=== PATIENT | male | born 2000 | race Caucasian/White ===

== ENCOUNTER 2022-10-14 21:03 | Emergency (ER) | payer BC, SELFPAY ==
[2022-10-14 22:51] VITALS: BP 143/76; PULSE 97; RESP 18; TEMP 37.2; O2SAT 100; BMI 26.2
[2022-10-14 23:39] LABS: Coronavirus 19, PCR Not Detected (NotDetected); Influenza A, PCR Not Detected (NotDetected); Influenza B, PCR Not Detected (NotDetected)
--- NOTE | 2022-10-15 00:08 | PC.NURSE ---
called lab and they advised 14 minutes remaining on respiratory swab
--- NOTE | 2022-10-15 00:28 | HMH.EDURI ---
Discharge Plan Disposition Patient Disposition: Home, Self-Care Prescriptions Prescriptions: New azithromycin [azithromycin] 250 mg tablet 250 mg PO DIRECTED Qty: 6 0RF Rx Instructions: Take two (2) tablets on day #1, then one (1) tablet day #2 thru #5 benzonatate 100 mg Capsule 100 mg PO Q8H Qty: 20 0RF prednisone [prednisone] 20 mg tablet 20 mg PO BID Qty: 10 0RF oseltamivir [Tamiflu] 75 mg capsule 75 mg PO BID 5 Days Qty: 10 0RF Referrals Follow up/Referrals: Provider,Referral, MD [Primary Care Provider] - See instructions Clinical Impressions Clinical Impression: Bronchitis Instructions Patient Instructions: DI for Acute Bronchitis Discharge ED Provider: Enmanuel Genao URI/Sore Throat HPI General Chief Complaint: Upper Respiratory Infection Stated Complaint: SOA,cough Time Seen by Provider: 10/15/22 00:29 Mode of Arrival: Ambulatory Source of Information: Patient and Medical Record Limitations: No Limitations Description of Symptoms (Recalled from ER Triage Doc. by RN): Patient c/o headache, bodyaches and cough for the prior 2 days. History of Present Illness HPI Narrative: achey and cough with exposure to flu over the last 2 days Complaint: cough and nasal congestion Onset (ago): day(s) Duration: intermittent Severity: moderate Relieving factors: OTC cold medicine Able to tolerate fluids by mouth: Yes Context: sick contacts Associated symptoms: myalgias Treatments prior to arrival: acetaminophen Related Data Previous Rx's Medication Instructions Recorded azithromycin 250 mg tablet 250 mg PO DIRECTED #6 tabs 10/15/22 benzonatate 100 mg capsule 100 mg PO Q8H #20 caps 10/15/22 oseltamivir 75 mg capsule (Tamiflu) 75 mg PO BID 5 days #10 caps 10/15/22 prednisone 20 mg tablet 20 mg PO BID #10 tabs 10/15/22 Allergies Allergy/AdvReac Type Severity Reaction Status Date / Time No Known Allergies Allergy Verified 10/14/22 22:54 PFSH PFSH Social History Smoking Status: Current every day smoker alcohol intake: never current occupational status: employed Travel in the last 8 weeks: None ROS Obtained: Yes All systems reviewed & no additional complaints except as documented Physical Exam General General appearance: alert Head Head exam: normocephalic Eye Eye exam: Present PERRL and EOMI ENT ENT exam: Present normal oropharynx and mucous membranes moist Neck Neck exam: Present trachea midline Respiratory Respiratory exam: Present normal lung sounds bilaterally; Absent respiratory distress Cardiovascular Cardiovascular exam: Present regular rate and normal heart sounds; Absent systolic murmur Abdominal Exam Abdominal exam: Present soft Extremities Exam Extremities exam: Present full ROM Neurological Exam Neurological exam: Present alert, oriented X3 and CN II-XII intact Skin Skin exam: Present intact Medical Decision Making Medical Records Medical records reviewed: Yes I reviewed the patient's medical records. Jamaal Inquiry Pt receiving controlled substance: No Vital Signs: 10/14/22 22:51 Temperature 98.9 F Temperature Source Oral Pulse Rate [Apical] 97 H Respiratory Rate 18 Blood Pressure [Right Arm] 143/76 H Blood Pressure Mean [Right Arm] 98 Blood Pressure Source [Right Arm] Automatic Cuff Blood Pressure Position [Right Arm] Sitting 02 Sat by Pulse Oximetry 100 Oxygen Delivery Method Room Air Lab Data Lab results reviewed: Yes I reviewed the patient's lab results. Lab Results 10/14/22 22:40: SARS-CoV-2 (PCR) Not detected, Influenza A Untype (PCR) Not detected, Influenza Type B (PCR) Not detected Orders (Tests/Meds): ORDERS Category Date Time Status Rapid PCR Covid and Flu A/B Stat Lab 10/14/22 22:40 Completed Medical Decision Narrative: has acute resp sx consistent with flu and awaiting full resp panel Critical Care Time Critical Care Time Critical Care Time: No Attestation: On
[2022-10-15 00:47] VITALS: BP 140/75; PULSE 88; RESP 18; TEMP 36.6; O2SAT 99
[2022-10-15 00:59] LABS: Adenovirus,PCR Not Detected (NotDetected); Bordetella Pertussis Not Detected (NotDetected); Chlamydophila Pneumoniae, PCR Not Detected (NotDetected); Coronavirus 19, PCR Not Detected (NotDetected); Coronavirus 229E Not Detected (NotDetected); Coronavirus NL63 Not Detected (NotDetected); Coronavirus OC43 Not Detected (NotDetected); Coronovirus HKU1,PCR Not Detected (NotDetected); Human Metapneumovirus Not Detected (NotDetected); Influenza A, PCR Not Detected (NotDetected); Influenza AH1, 2009 Not Detected (NotDetected); Influenza AH1, PCR Not Detected (NotDetected); Influenza AH3,PCR Not Detected (NotDetected); Influenza B, PCR Not Detected (NotDetected); Mycoplasma Pneumoniae, PCR Not Detected (NotDetected); Parainfluenza 1, PCR Not Detected (NotDetected); Parainfluenza 2, PCR Not Detected (NotDetected); Parainfluenza 3, PCR Not Detected (NotDetected); Parainfluenza 4, PCR Not Detected (NotDetected); Respiratory Syncytial Virus Not Detected (NotDetected); Rhinovirus/Enterovirus Not Detected (NotDetected)
== END 2022-10-15 00:49 | disposition home or self-care (01) ==
PROVIDERS: Emergency Provider Emergency Medicine
DX: J06.9 Acute upper respiratory infection, unspecified (principal); M79.10 Myalgia, unspecified site; R09.81 Nasal congestion; R51.9 Headache, unspecified; Z20.822 Contact with and (suspected) exposure to COVID-19; Z79.52 Long term (current) use of systemic steroids
CPT/HCPCS: 87581; 87632; 87798; 99283; C9803; U0003; U0005

== ENCOUNTER 2023-06-30 11:37 | Emergency (ER) | payer BC, SELFPAY ==
--- NOTE | 2023-06-30 11:47 | ECG_ITS ---
APPROVED REPORT Exam: Resting ECG HR:74 bpm ECG Measurements Heart Rate 74 AXES WI 133 P 41 QRSd 97 QRS 76 QT 360 T 69 QTc 387 Conclusion SINUS RHYTHM NORMAL ECG UNCONFIRMED REPORT Electronically signed by : Neto Hunter MD 07/01/2023 17:34:21
[2023-06-30 11:52] VITALS: BP 148/82; PULSE 88; RESP 19; TEMP 36.7; O2SAT 100; BMI 25.1
[2023-06-30 12:00] VITALS: BP 143/69; PULSE 73; RESP 13; O2SAT 97
[2023-06-30 12:03] LABS: Basophils % 0.3 % (0.1-2.0); Eosinophils # 0.2 K/mm3 (0.0-0.4); Eosinophils % 2.1 % (0.1-12.0); Hematocrit 43.7 % (42.0-52.0); Hemoglobin 14.8 g/dL (14.1-18.0); Lymphocytes # 1.8 K/mm3 (0.7-4.5); Lymphocytes % 24.5 % (10-50); Mean Corpuscular HGB Conc 33.8 g/dL (31.8-35.4); Mean Corpuscular Hemoglobin 28.2 pg (27.0-31.2); Mean Corpuscular Volume 83.5 fl (80-94); Mean Platelet Volume 8.4 fl (7.4-10.4); Monocytes # 0.5 K/mm3 (0.1-1.0); Monocytes % 6.4 % (1.7-9.3); Neutrophils # 4.8 K/mm3 (1.8-7.8); Neutrophils % 66.6 % (37.0-80.0); Platelet Count 204 K/mm3 (142-424); Red Blood Count 5.24 M/mm3 (4.60-6.20); Red Cell Distribution Width 13.1 % (11.5-17.5); White Blood Count 7.1 K/mm3 (4.8-10.8)
--- NOTE | 2023-06-30 12:07 | PC.NURSE ---
Contacted Cardiology per Tyree who called stating that pt was to go straight to [facility] and office for further assistance. Per Cardiology pt was to fu on another day. Pt will be seen by cardiology in the ER. Dr. Raymundo loyd.
[2023-06-30 12:08] VITALS: PULSE 69
--- NOTE | 2023-06-30 12:14 | CA_ITS ---
APPROVED REPORT EXAM: Comprehensive 2D, Doppler, and color-flow Echocardiogram Boat Painter: Sonja Beard, RCS, RVS Ht: 6 ft 2 in Wt: 196lbs BSA: 2.15 BP: 141/76 mmHg Indications: CP, Abn EKG 2D Dimensions Aortic Root 2.94 cm LA Volume 49.60 mL Left Atrium 3.43 cm LA Volume Index 22.40 mL/m2 (M/F) 16-34 LVOT 1.91 cm (M/F) 1.5-2.5 M-Mode Dimensions RVDd 2.43 cm (0.9-2.6) LA Diam 3.05 cm (1.9-4.0) LVDd 4.74 cm (3.5-5.7) Ao Diam 3.05 cm (2.0-3.7) LVDs 3.34 cm (3.5-5.7) IVSd 0.91 cm (0.6-1.1) PWd 0.87 cm (0.6-1.1) EF (Teich) 56.50% EPSs 0.27 cm FS 29.50% EDV (Teich) 104.40 mL TAPSE 2.18 (<1.7) ESV (Teich) 45.40 mL LV Diastology E Decel Time 230.00 (160-240 msec) E/A Ratio 1.90 MED E' 10.40 (< 7 cm/sec) MED A' 9.40 cm/s E'/MED E' Ratio 9.05 (>14) LAT E' 17.80 (<10 cm/sec) LAT A' 12.10 cm/s E/LAT E' Ratio 5.29 (>14) Aortic Valve LVOT Max 88.00 (70-110 cm/s) LVOT VTI 19.55 cm AoV Peak Rigoberto. 131.00 (50-130 cm/s) AO Peak GR. 6.90 mmHg AO Mean GR. 3.40 (<5 mmHg) AO VTI 28.40 (18-25 cm) LIONEL (VTI) 1.97 (2.5-4.5 cm2) Mitral Valve MV A Velocity 50.00 (40-130 cm/s) E/A Ratio 1.90 MV Decel. Time 230.00 (160-240 ms) Pulmonary Valve PV Peak Velocity 105.00 (50-150 cm/s) Tricuspid Valve TR P. Velocity 199.00 cm/s RAP Estimate 10.00 mmHg RVSP 25.80 mmHg Left Ventricle The left ventricle is normal size. The left ventricular systolic function is normal. The left ventricular ejection fraction is within the normal range. There is normal left ventricular wall thickness. There is normal LV segmental wall motion. The left ventricular diastolic function is normal. LVEF is 55%. Right Ventricle The right ventricle is normal size. The right ventricular systolic function is normal. There is normal right ventricular wall thickness. Atria The left atrium size is normal. The right atrium size is normal. Aortic Valve The aortic valve opens well. There is no aortic valvular stenosis. Trace aortic regurgitation. Mitral Valve The mitral valve is normal in structure. No evidence of mitral valve stenosis. There is trace mitral valve regurgitation noted. Tricuspid Valve The tricupid valve leaflets are thin and pliable. Trace tricuspid regurgitation. RVSP is normal. Pulmonic Valve The pulmonary valve is normal in structure. Trace pulmonic regurgitation. Great Vessels The aortic root is normal in size. IVC is normal in size and collapses >50% with inspiration. Pericardium There is no pericardial effusion. Other Information Study Quality: Adequate Conclusion Normal biventricular systolic function. No significant valvular disease. No pericardial effusions. Electronically signed by : Brenda Fallon, 06/30/2023 13:59:16
[2023-06-30 12:19] LABS: Alanine Aminotransferase 29 U/L (12-78); Albumin Level 4.7 g/dl (3.5-5.0); Albumin/Globulin Ratio 1.4 (1.1-1.8); Alkaline Phosphatase 81 U/L (38-126); Anion Gap 12.8 mEq/L (5-15); Aspartate Amino Transferase 33 U/L (17-59); Bilirubin,Total 0.3 mg/dl (0.2-1.3); Blood Urea Nitrogen 22 mg/dl (9-20); Calcium 9.5 mg/dl (8.4-10.2); Carbon Dioxide 27 mmol/L (22.0-30.0); Chloride 105 mmol/L (98-107); Creatinine Clearance Estimated 129 mL/min (50-200); Estimated Glomerular Filt Rate 82 ml/min (>60); GFR (African American) 99 ML/MIN (>60); Globulin 3.4 g/dL (1.3-3.2); Glucose 98 mg/dl (74-100); Potassium 3.8 mmoL/L (3.5-5.1); Sodium 141 mmol/L (136-145); Total Protein,Serum 8.1 g/dl (6.3-8.2)
[2023-06-30 12:30] VITALS: BP 141/76; PULSE 62; O2SAT 96
[2023-06-30 12:30] LABS: Troponin I < 0.01 ng/ml (0.00-0.034)
[2023-06-30 12:45] LABS: D-Dimer 0.45 ug/mL (0.0-0.5)
[2023-06-30 12:58] LABS: Erythrocyte Sedimentation Rate 6 mm/hr (0-15)
[2023-06-30 12:59] LABS: C-Reactive Protein < 0.3 mg/L (0-4)
--- NOTE | 2023-06-30 13:22 | EXP.CARD.CON ---
History of Present Illness History of Present Illness Consult date: 06/30/23 Requesting physician: Whitley Fonseca Consult reason: chest pain Chief complaint: chest pain History of present illness: This is a 23-year-old white gentleman who presented to the emergency department complaints of chest pain. The patient states that his chest pain started around 9 AM this morning. He states that this is a sharp pain in the left side of his chest, in the rib area underneath his breast that radiated across his chest. He states that it was associated with shortness of breath. It did not seem to be any worse with deep inhalation. He states laying back made his chest pain better. He states that he felt the pain more when he was standing up. He states that the pain would come and go and was severe pain. The patient reports not ever having any pain like that before. He does report having episodes where he feels like his heart speeds up and then slows down and when his heart rate slows down he gets a little short of breath. He states that these episodes happen intermittently but he does not recall when this last episode happened. He denies any history of heart disease. His father has a history of hypertension and was recently in the hospital and underwent cardiac catheterization and was found to have mild coronary artery disease. His maternal grandfather also has coronary artery disease. He is a current tobacco user. [facility] Disclaimer: The information contained in this section may have been updated after the patient was seen, as this information can be updated by other users. Medical History (Updated 06/30/23 @ 13:34 by Whitley Fonseca DO) Acid reflux Acute dyspnea Chest pain Palpitations Social History (Updated 10/15/22 @ 00:36 by Enmanuel Genao MD) Smoking Status: Current every day smoker alcohol intake: never current occupational status: employed Travel in the last 8 weeks: None Review of Systems Review of Systems Review of systems:: pertinent systems reviewed and negative unless documented below Constitutional Constitutional: Reports system reviewed and no additional complaints, except as documented Eyes Eyes: Reports system reviewed and no additional complaints, except as documented ENT Ears, Nose, Mouth, and Throat: Reports system reviewed and no additional complaints, except as documented *Cardiovascular Cardiovascular: Reports system reviewed and no additional complaints, except as documented, Reports chest pain, Reports chest pain at rest, Reports chest pain with activity, Reports dyspnea, Reports dyspnea on exertion, Reports palpitations, Reports rapid heart rate and Reports slow heart rate *Respiratory Respiratory: Reports system reviewed and no additional complaints, except as documented, Reports dyspnea and Reports dyspnea on exertion *Gastrointestinal Gastrointestinal: Reports system reviewed and no additional complaints, except as documented *Genitourinary Genitourinary: Reports system reviewed and no additional complaints, except as documented *Musculoskeletal Musculoskeletal: Reports system reviewed and no additional complaints, except as documented Integumentary/Breasts Skin/Breast: Reports system reviewed and no additional complaints, except as documented *Neurologic Neurologic: Reports system reviewed and no additional complaints, except as documented Psychiatric Psychiatric: Reports system reviewed and no additional complaints, except as documented Endocrine Endocrine: Reports system reviewed and no additional complaints, except as documented and Reports palpitations Hematologic/Lymphatic Hematologic/Lymphatic: Reports system reviewed and no additional complaints, except as documented Allergic/Immunologic Allergic/Immunologic: Reports system reviewed and no additional complaints, except as documented Exam Data for Last 24 hours Vital signs and Labs for Last 24 Hours: Temp Pulse Resp BP Pulse Ox O2 Del Me
--- NOTE | 2023-06-30 13:32 | HMH.EDGENADL ---
Discharge Plan Disposition Patient Disposition: Home, Self-Care Condition: Good Prescriptions Prescriptions: New pantoprazole 40 mg tablet,delayed release (DR/EC) 40 mg PO DAILY Qty: 30 0RF No Action azithromycin [azithromycin] 250 mg tablet 250 mg PO DIRECTED Qty: 6 0RF Rx Instructions: Take two (2) tablets on day #1, then one (1) tablet day #2 thru #5 benzonatate 100 mg Capsule 100 mg PO Q8H Qty: 20 0RF prednisone [prednisone] 20 mg tablet 20 mg PO BID Qty: 10 0RF oseltamivir [Tamiflu] 75 mg capsule 75 mg PO BID 5 Days Qty: 10 0RF Referrals Follow up/Referrals: Tyree Salmeron APRN [Primary Care Provider] - See instructions Activity Restrictions/Add. Instructions Additional Instructions/Restrictions: You were evaluated in the emergency department today. Please follow-up closely with cardiology. They would like to see you within 1 week. We have ordered a Holter monitor for you for 48 hours, however they are on backorder. The hospital will work to get you into soon as possible. Please follow-up with cardiology for this. Return to the emergency department for any new or worsening symptoms. superintendent renting managing your prescription for your medication at the pharmacy and take as prescribed. Clinical Impressions Clinical Impression: Atypical chest pain Instructions Patient Instructions: DI for Atypical Chest Pain Discharge ED Provider: Whitley Fonseca General Adult HPI General Chief complaint: Chest Pain Stated complaint: abnormal EKG Time Seen by Provider: 06/30/23 11:45 Mode of Arrival: Ambulatory Source of Information: Patient Limitations: No Limitations Description of Symptoms (Recalled from ER Triage Doc. by RN): 23 yo M presents to ED for recheck. pt was seen by pcp today for high blood pressure. pt states that he was out running errands, began to have chest pressure and went to pcp to have it checked. pt reports that pain has gone upon arrival to ED. but prior pain was located in left chest and radiating into back and down into flank area. History of Present Illness HPI narrative: This patient is a 23-year-old male who denies significant past medical history presented to the emergency department for evaluation with concern for chest pain. Patient was evaluated by his primary care provider today after chest pain started around 9:00 this morning while he was taking his kids to daycare. He denies experiencing anything like this in the past. He states the chest pain changes from side to side in his chest, and he did experience some symptoms radiating down his left arm. His primary care provider was in touch with cardiology who went to evaluate the patient in clinic. He came here for further evaluation and management instead. He denies any recent fevers, chills, cough, congestion, shortness of breath, abdominal pain, nausea, vomiting, changes in bowel movements, or other concerns. He does have a history of acid reflux. He is currently asymptomatic, as his symptoms have resolved. Related Data Previous Rx's Medication Instructions Recorded azithromycin 250 mg tablet 250 mg PO DIRECTED #6 tabs 10/15/22 benzonatate 100 mg capsule 100 mg PO Q8H #20 caps 10/15/22 oseltamivir 75 mg capsule (Tamiflu) 75 mg PO BID 5 days #10 caps 10/15/22 prednisone 20 mg tablet 20 mg PO BID #10 tabs 10/15/22 pantoprazole 40 mg tablet,delayed 40 mg PO DAILY #30 tabs 06/30/23 release Allergies Allergy/AdvReac Type Severity Reaction Status Date / Time No Known Allergies Allergy Verified 06/30/23 11:55 [facility] Disclaimer: The information contained in this section may have been updated after the patient was seen, as this information can be updated by other users. Medical History Acid reflux Acute dyspnea Chest pain Palpitations Social History Smoking Status: Current every day smoker
--- NOTE | 2023-06-30 13:38 | PC.NURSE ---
Respiratory has been notified of 48 hr Holtor monitor. Provided patient's name and phone number to Oscar SOLIS
[2023-06-30 13:57] VITALS: BP 141/76; PULSE 62; RESP 19; TEMP 36.7
== END 2023-06-30 13:58 | disposition home or self-care (01) ==
PROVIDERS: Nurse Practitioner Family; Emergency Provider Emergency Medicine; PCP Nurse Practitioner Family
DX: R07.89 Other chest pain (principal); K21.9 Gastro-esophageal reflux disease without esophagitis; F17.200 Nicotine dependence, unspecified, uncomplicated
CPT/HCPCS: 80053; 84484; 85025; 85378; 85651; 86140; 93005; 93306; 99285

== ENCOUNTER → 2023-07-06 10:53 | Outpatient (CLI) | payer BC, SELFPAY | PROVIDERS: PCP Nurse Practitioner Family; Visit Provider Emergency Medicine | DX: R07.9 Chest pain, unspecified (principal); R94.31 Abnormal electrocardiogram [ECG] [EKG] | CPT/HCPCS: 93225 ==

== ENCOUNTER 2024-04-14 21:28 | Emergency (ER) | payer OTHER, SELFPAY ==
[2024-04-14] VITALS (9 sets, daily range): BP systolic 130–172; BP diastolic 68–106; PULSE 97–117; RESP 12–21; TEMP 36.9; O2SAT 94–100; BMI 25.1
[2024-04-14] MEDS: LACTATED RINGERS 1000ML 1,000 ML 999 ML IV (21:32)
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
--- NOTE | 2024-04-14 21:40 | ECG_ITS ---
APPROVED REPORT Exam: Resting ECG HR:89 bpm ECG Measurements Heart Rate 89 AXES IA 112 P 55 QRSd 100 QRS 78 QT 348 T 68 QTc 395 Conclusion SINUS RHYTHM WITH MARKED SINUS ARRHYTHMIA WITH SHORT IA INTERVAL BORDERLINE ECG Electronically signed by : IGLESIA CALIXTO, 04/16/2024 00:07:36
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
[2024-04-14 21:51] LABS: Basophils # 0.1 K/mm3 (0-0.2); Basophils % 0.7 % (0.1-2.0); Eosinophils # 0.1 K/mm3 (0.0-0.4); Eosinophils % 0.7 % (0.1-12.0); Hematocrit 46.1 % (42.0-52.0); Lymphocytes # 2.8 K/mm3 (0.7-4.5); Lymphocytes % 31.4 % (10-50); Mean Corpuscular HGB Conc 34.8 g/dL (31.8-35.4); Mean Corpuscular Hemoglobin 28.7 pg (27.0-31.2); Mean Corpuscular Volume 82.5 fl (80-94); Mean Platelet Volume 8.8 fl (7.4-10.4); Monocytes # 0.4 K/mm3 (0.1-1.0); Monocytes % 4.7 % (1.7-9.3); Neutrophils # 5.6 K/mm3 (1.8-7.8); Neutrophils % 62.5 % (37.0-80.0); Platelet Count 311 K/mm3 (142-424); Red Blood Count 5.58 M/mm3 (4.60-6.20); Red Cell Distribution Width 13.2 % (11.5-17.5); White Blood Count 8.9 K/mm3 (4.8-10.8)
[2024-04-14 21:54] LABS: Chloride 105 mmol/L (98-107); Potassium 3.5 mmoL/L (3.5-5.1); Sodium 140 mmol/L (136-145)
[2024-04-14] MEDS: HYDROMORPHONE 2MG/ML SYRINGE 0.5 MG IV (21:55)
[2024-04-14] MEDS: KETOROLAC 30MG/ML VIAL 15 MG IV (21:55)
[2024-04-14 21:56] LABS: Blood Urea Nitrogen 17 mg/dl (9-20); Creatinine Clearance Estimated 128 mL/min (50-200); Estimated Glomerular Filt Rate 81 ml/min (>60); GFR (African American) 98 ML/MIN (>60)
[2024-04-14 21:57] LABS: Alanine Aminotransferase 51 U/L (12-78); Albumin/Globulin Ratio 1.5 (1.1-1.8); Alkaline Phosphatase 89 U/L (38-126); Anion Gap 16.5 mEq/L (5-15); Aspartate Amino Transferase 69 U/L (17-59); Bilirubin,Total 0.7 mg/dl (0.2-1.3); Calcium 10.4 mg/dl (8.4-10.2); Carbon Dioxide 22 mmol/L (22.0-30.0); Globulin 3.4 g/dL (1.3-3.2); Glucose 116 mg/dl (74-100); Lipase 180 U/L (23-300); Total Protein,Serum 8.4 g/dl (6.3-8.2)
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
[2024-04-14 22:11] LABS: Troponin I < 0.01 ng/ml (0.00-0.034)
[2024-04-14 22:15] LABS: Lactic Acid 2.8 mmol/L (0.7-2.1)
--- NOTE | 2024-04-14 22:22 | PC.NURSE ---
Radiology notified to [employer] images
[2024-04-14] MEDS: 0.9 % SODIUM CHLORIDE 50 ML VIAL 100 ML IV (22:23)
[2024-04-14] MEDS: SODIUM CHLORIDE 0.9% 10ML SYR (RAD ONLY) 10 ML IV (22:23)
[2024-04-14] MEDS: IOPAMIDOL-370 (76%);100ML BOTTLE 180 ML IV (22:23)
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
--- NOTE | 2024-04-14 22:42 | PC.NURSE ---
Pt accepted by Dr Alexander at [place]. CR
[2024-04-14 22:45] LABS: Microscopic, Urine URINE MICROSCOPIC (MICROSCOPIC)
[2024-04-14 22:46] LABS: Appearance,Urine SL CLOUDY (Clear); Bilirubin,Urine Negative (Negative); Blood, Urine 3+ (Negative); Color,Urine YELLOW (Yellow); Glucose,Urine (UA) Negative (Negative); Ketones,Urine 1+ (Negative); Leukocyte Esterase,Urine Negative (Negative); Nitrate,Urine Negative (Negative); Protein,Urine 2+ (Negative); Urobilinogen,Urine 0.2 EU/dl (0.2)
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
--- NOTE | 2024-04-14 22:53 | PC.NURSE ---
Nurse to nurse report to Rosita Clemons RN at [facility].
[2024-04-14 23:04] LABS: Bacteria,Urine Trace /lpf; RBC,Urine 20-50 #/hpf (0-3); Squamous Epithelial Cell,Urine Occasional #/hpf (0-5)
[2024-04-15 02:03] LABS: Reflex Lactic Add Lactic Reflex
== END 2024-04-14 23:15 | disposition short-term general hospital (02) ==
PROVIDERS: Emergency Provider Emergency Medicine; PCP Nurse Practitioner Family
DX: S32.512A Fracture of superior rim of left pubis, initial encounter for closed fracture (principal); S32.110A Nondisplaced Zone I fracture of sacrum, initial encounter for closed fracture; R07.9 Chest pain, unspecified; M25.552 Pain in left hip; R74.02 Elevation of levels of lactic acid dehydrogenase [LDH]; F17.210 Nicotine dependence, cigarettes, uncomplicated; V49.40XA Driver injured in collision with unspecified motor vehicles in traffic accident, initial encounter; Y92.410 Unspecified street and highway as the place of occurrence of the external cause
CPT/HCPCS: 51702; 70450; 70496; 70498; 71045; 71275; 72125; 72128; 72131; 72192; 73502; 73552; 74174; 80053; 81001; 83605; 83690; 84484; 85025; 93005; 96361; 96374; 96375; 99285; J7120; Q9967

== ENCOUNTER 2024-05-10 11:28 | Outpatient (CLI) | payer OTHER, SELFPAY ==
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
== END 2024-05-10 23:59 | disposition home or self-care (01) ==
LOC: RAD 11:29
PROVIDERS: PCP Nurse Practitioner Family; Visit Provider Physician Assistant
DX: R10.2 Pelvic and perineal pain (principal); S32.82XA Multiple fractures of pelvis without disruption of pelvic ring, initial encounter for closed fracture
CPT/HCPCS: 72190

== ENCOUNTER 2024-06-22 10:43 | Outpatient (CLI) | payer OTHER, SELFPAY ==
--- NOTE | 2024-06-22 10:45 | XR_ITS ---
FINAL REPORT CLINICAL HISTORY: pelvis pain FINDINGS: Pelvis Three views were obtained. There is no acute fracture or dislocation. The joint spaces appear normal. No soft tissue abnormality is identified. IMPRESSION: No acute process. . Reviewed, Interpreted and Dictated by Ethan Murrell III, MD Transcribed by Kristi Pickering Authenticated and . [facility]
== END 2024-06-22 23:59 | disposition home or self-care (01) ==
LOC: RAD 10:43
PROVIDERS: PCP Nurse Practitioner Family; Visit Provider Physician Assistant
DX: S32.82XA Multiple fractures of pelvis without disruption of pelvic ring, initial encounter for closed fracture (principal)
CPT/HCPCS: 72190

== ENCOUNTER 2024-07-15 10:00 | Outpatient (RCR) | payer OTHER, SELFPAY | END 2024-07-15 10:05 | disposition home or self-care (01) | LOC: PT 10:00 | PROVIDERS: Visit Provider Physician Assistant | DX: M54.50 Low back pain, unspecified (principal); R10.2 Pelvic and perineal pain; S32.10XA Unspecified fracture of sacrum, initial encounter for closed fracture | CPT/HCPCS: 97110; 97116; 97163; 97164; 97530 ==

== ENCOUNTER 2024-07-25 11:01 | Outpatient (CLI) | payer OTHER, SELFPAY ==
--- NOTE | 2024-07-25 11:03 | XR_ITS ---
FINAL REPORT CLINICAL HISTORY: PAIN COMPARISON: None FINDINGS: LEFT HIP: 3 views of the left hip demonstrate no acute fracture or dislocation. The joint spaces appear normal. 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 The visualized bony structures are well aligned. No soft tissue abnormality is seen. 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 No acute bony abnormality identified. Reviewed, Interpreted and Dictated by Ethan Murrell III, MD Transcribed by Danita Webb Authenticated and . [facility]
== END 2024-07-25 23:59 | disposition home or self-care (01) ==
LOC: RAD 11:01
PROVIDERS: PCP Nurse Practitioner Family; Visit Provider Physician Assistant
DX: M25.552 Pain in left hip (principal)
CPT/HCPCS: 73502

== ENCOUNTER 2024-10-14 14:40 | Emergency (ER) | payer OTHER, SELFPAY ==
[2024-10-14 16:14] VITALS: BP 121/86; PULSE 78; RESP 18; TEMP 37.1; O2SAT 99; BMI 25.0
--- NOTE | 2024-10-14 16:32 | ED_ITS ---
Discharge Plan Disposition Patient Disposition: Home, Self-Care Condition: Good Prescriptions Prescriptions: No Action No Known Home Medications Referrals Follow up/Referrals: Tyree Salmeron APRN [Primary Care Provider] - See instructions Activity Restrictions/Add. Instructions Additional Instructions/Restrictions: Drink plenty of fluids. Take tylenol or ibuprofen for pain or fever. Take the zofran (ondesetron) as directed for nausea/vomiting. Return a stool sample with the outpatient order as discussed if your diarrhea continues. Follow up with your regular doctor. GO TO THE ER FOR ANY WORSENING SYMPTOMS Clinical Impressions Clinical Impression: Gastroenteritis, Diarrhea Stand Alone Forms Stand Alone Forms: Work/School Release Instructions Patient Instructions: Diarrhea, Ondansetron Print Language Print Language: Georgian Discharge ED Provider: Yayo Morrow [facility] General Stated complaint: cough, sore throat, aches Mode of Arrival: Ambulatory Source of Information: Patient Time Seen by Provider: 10/14/24 16:31 Description of Symptoms (Recalled from Triage Doc. by RN): NEEDS WORK NOTE HEENT Symptoms (Recalled from RN notes): No Resp Symptoms (Recalled from RN notes): No Skin Symptoms (Recalled from RN notes): No MS Symptoms (Recalled from RN notes): No Functional Status (Recalled from RN notes): WNL Related Data Home Medications ?Medication ?Instructions ?Recorded ?Confirmed No Known Home Medications 10/14/24 10/14/24 Allergies Allergy/AdvReac Type Severity Reaction Status Date / Time No Known Allergies Allergy Verified 07/25/24 11:38 Worker's Comp Is this a Worker's Comp case?: No [facility] Disclaimer: The information contained in this section may have been updated after the patient was seen, as this information can be updated by other users. Medical History Acute dyspnea Palpitations Acid reflux Chest pain Social History Smoking Status: Current every day smoker alcohol intake: never current occupational status: employed ROS Obtained: Yes All systems reviewed & no additional complaints except as documented Constitutional Constitutional: Denies chills, Denies fever(s) and Reports poor appetite ENT Ears, Nose, Mouth, and Throat: Denies dizziness and Denies sore throat Cardiovascular Cardiovascular: Denies dyspnea Respiratory Respiratory: Denies chest congestion, Denies cough and Denies dyspnea Musculoskeletal Musculoskeletal: Denies arthralgias Integumentary/Breasts Skin/Breast: Denies rash Neurologic Neurologic: Denies dizziness Physical Exam General General appearance: alert and in no apparent distress Head Head exam: atraumatic and normocephalic Eye Eye exam: Present normal appearance, PERRL and EOMI ENT ENT exam: Present normal exam, normal oropharynx, mucous membranes moist, TM's normal bilaterally and normal external ear exam Neck Neck exam: Present normal inspection, full ROM and trachea midline; Absent tenderness, meningismus or lymphadenopathy Chest Chest inspection: Present normal inspection and symmetric chest wall rise; Absent tenderness, rash or abscess Respiratory Respiratory exam: Present normal lung sounds bilaterally; Absent respiratory distress, wheezes or stridor Cardiovascular Cardiovascular exam: Present regular rate and normal rhythm; Absent irregular rh ythm, systolic murmur, diastolic murmur or JVD Abdominal Exam Abdominal exam: Present soft and hyperactive bowel sounds; Absent distention, tenderness, guarding, rebound, rigidity, psoas sign, obturator sign, heel tap sign, Hernandez's sign, Rovsing's sign or tenderness at McBurney's Point Extremities Exam Extremities exam: Present normal inspection and full ROM; Absent tenderness Back Exam Back exam: Present normal inspection and full ROM; Absent tenderness, CVA tenderness (R) or CVA tenderness (L) Neurological Exam Neurological exam: Present alert, oriented X3 and CN II-XII intact Psychiatric Psychiatric exam: Present normal affect and normal mood Skin Skin exam: Present warm, dry, intact and normal color Lymphatic Lymphatic Findings: no adenopathy Medical Decision Making Medical Records Medical records reviewed: No I reviewed the patient's medical records. Screening: Per USPSTF and CDC recommendations, given the prevalence of disease in our region, it is our hospital?s policy to screen for HIV and viral Hepatitis for all patients aged 18 and over and those with ongoing risk factors. Jamaal Inquiry Pt receiving controlled substance: No Vital Signs: 10/14/24 16:14 Temperature 98.7 F Temperature Source Oral Pulse Rate [Left Radial] 78 Respiratory Rate 18 Blood Pressure [Left Arm] 121/86 Blood Pressure Mean [Left Arm] 97 02 Sat by Pulse Oximetry 99
[2024-10-14 16:56] VITALS: BP 121/86; PULSE 78; RESP 18; TEMP 37.1
== END 2024-10-14 17:03 | disposition home or self-care (01) ==
PROVIDERS: Emergency Provider Nurse Practitioner Family; PCP Nurse Practitioner Family
DX: K52.9 Noninfective gastroenteritis and colitis, unspecified (principal)
CPT/HCPCS: 99213; G0381

== ENCOUNTER 2025-05-30 07:31 | Outpatient (RCR) | payer OTHER, SELFPAY ==
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
== END 2025-05-30 23:59 | disposition home or self-care (01) ==
LOC: PT 07:31
PROVIDERS: Visit Provider Physician Assistant
DX: M46.1 Sacroiliitis, not elsewhere classified (principal); M24.152 Other articular cartilage disorders, left hip
CPT/HCPCS: 97163